=== PATIENT | male | born 1995 | race Caucasian/White ===

== ENCOUNTER 2017-08-03 21:35 | Emergency (ER) | payer OTHER, MEDICAID ==
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
[2017-08-03 21:52] VITALS: BP 144/81; PULSE 85; RESP 18; TEMP 98.2; O2SAT 96
== END 2017-08-03 22:47 | disposition home or self-care (01) ==
LOC: C.ER 21:35 → SUPCPDRO 21:35 → C.ER 22:47
DX: Z04.1 Encounter for examination and observation following transport accident (principal); W22.11XA Striking against or struck by driver side automobile airbag, initial encounter